=== PATIENT | female | born 1990 | race Caucasian/White ===

== ENCOUNTER → 2022-05-08 07:45 | Outpatient (CLI) | payer BC, SELFPAY ==
[2022-05-08 07:53] LABS: MANUAL DIFFERENTIAL MANUAL DIFFERENTIAL (MANUAL DIFF); Microscopic, Urine URINE MICROSCOPIC (MICROSCOPIC)
[2022-05-08 08:26] LABS: Appearance,Urine CLEAR (Clear); Bilirubin,Urine Negative (Negative); Blood, Urine Negative (Negative); Color,Urine YELLOW (Yellow); Glucose,Urine (UA) Negative (Negative); Ketones,Urine Negative (Negative); Leukocyte Esterase,Urine Negative (Negative); Nitrate,Urine Negative (Negative); PH,Urine 6.5 (5.0-8.5); Protein,Urine Negative (Negative); Urobilinogen,Urine 0.2 EU/dl (0.2)
[2022-05-08 08:29] LABS: Basophils # 0.1 K/mm3 (0-0.2); Basophils % 0.6 % (0.1-2.0); Eosinophils # 0.1 K/mm3 (0.0-0.4); Eosinophils % 0.6 % (0.1-12.0); Hematocrit 39.8 % (37.0-47.0); Lymphocytes # 2.3 K/mm3 (0.7-4.5); Lymphocytes % 29.4 % (10-50); Mean Corpuscular HGB Conc 32.6 g/dL (31.8-35.4); Mean Corpuscular Hemoglobin 29.4 pg (27.0-31.2); Mean Corpuscular Volume 90.4 fl (81-99); Mean Platelet Volume 8.7 fl (7.4-10.4); Monocytes # 0.4 K/mm3 (0.1-1.0); Monocytes % 4.5 % (1.7-9.3); Neutrophils # 5.1 K/mm3 (1.8-7.8); Neutrophils % 64.9 % (37.0-80.0); Platelet Count 299 K/mm3 (142-424); Red Blood Count 4.41 M/mm3 (4.20-5.40); Red Cell Distribution Width 13.7 % (11.5-17.5); White Blood Count 7.9 K/mm3 (4.8-10.8)
[2022-05-08 08:38] LABS: Bacteria,Urine Trace /lpf; WBC,Urine Occasional #/hpf (0-3)
[2022-05-08 09:03] LABS: Alanine Aminotransferase 21 U/L (12-78); Albumin Level 4.5 g/dl (3.5-5.0); Albumin/Globulin Ratio 1.8 (1.1-1.8); Alkaline Phosphatase 70 U/L (38-126); Anion Gap 13.7 mEq/L (5-15); Aspartate Amino Transferase 25 U/L (14-36); Bilirubin,Total 0.3 mg/dl (0.2-1.3); Blood Urea Nitrogen 11 mg/dl (7-17); Calcium 9.6 mg/dl (8.4-10.2); Carbon Dioxide 30 mmol/L (22.0-30.0); Chloride 100 mmol/L (98-107); Chol/HDL Ratio 3.5 (1-3.5); Cholesterol 189 mg/dl (140-200); Estimated Glomerular Filt Rate 98 ml/min (>60); GFR (African American) 118 ML/MIN (>60); Globulin 2.5 g/dL (1.3-3.2); Glucose 92 mg/dl (74-100); HDL Cholesterol 54 mg/dl (40-60); Potassium 4.7 mmoL/L (3.5-5.1); Sodium 139 mmol/L (136-145); Triglycerides 73 mg/dl (30-150); VLDL Cholesterol 15 mg/dL (0-40)
[2022-05-08 09:34] LABS: Thyroid Stimulating Hormone 1.91 uIU/mL (0.465-4.68)
[2022-05-08 10:18] LABS: Eosinophils % 1 % (0-3); Lymphocytes % 33 % (10-50); Monocytes % 5 % (2-9); Neutrophils % 61 % (42-76); Total Cells Counted 100
[2022-05-08 10:19] LABS: Platelet Estimate Normal; RBC Morphology Normal
== END ==
PROVIDERS: PCP Family Medicine; Visit Provider Family Medicine
DX: F32.A Depression, unspecified (principal); F41.9 Anxiety disorder, unspecified; F90.9 Attention-deficit hyperactivity disorder, unspecified type; I95.9 Hypotension, unspecified
CPT/HCPCS: 36415; 80053; 80061; 81001; 83036; 84443; 85007; 85014; 85018; 85048; 85049; 87086

== ENCOUNTER 2022-10-13 23:16 | Emergency (ER) | payer BC, SELFPAY ==
[2022-10-13 23:17] VITALS: BP 152/92; PULSE 66; RESP 16; TEMP 36.4; O2SAT 98; BMI 25.8
[2022-10-13 23:24] VITALS: BP 152/92; PULSE 62; RESP 20; O2SAT 100
[2022-10-13 23:31] VITALS: BMI 25.8
[2022-10-13 23:32] VITALS: BP 141/85; PULSE 68; RESP 18; O2SAT 100
--- NOTE | 2022-10-13 23:32 | CT_ITS ---
PROCEDURE INFORMATION: Exam: CT Abdomen And Pelvis With Contrast Exam date and time: 10/14/2022 12:14 AM Age: 32 years old Clinical indication: Abdominal pain; Additional info: Abd pain TECHNIQUE: Imaging protocol: Computed tomography of the abdomen and pelvis with contrast. Radiation optimization: All CT scans at this facility use at least one of these dose optimization techniques: automated exposure control; mA and/or kV adjustment per patient size (includes targeted exams where dose is matched to clinical indication); or iterative reconstruction. Contrast material: ISOVUE; Contrast volume: 75 ml; Contrast route: IV; REPORTING DATA: Count of CT and Cardiac NM exams in prior 12 months: This patient has received 0 known CTs and 0 known cardiac nuclear medicine studies in the 12 months prior to the current study. COMPARISON: No relevant prior studies available. FINDINGS: Lungs: Clear basilar lung parenchyma. Pleural spaces: No pleural fluid. Heart: Normal heart size. Liver: Mild periportal tracking is compatible with robust hydration status. Normal homogeneous liver parenchyma. Gallbladder and bile ducts: Cholelithiasis. No gallbladder wall thickening or pericholecystic fluid. No biliary tree dilation. Pancreas: Normal. No ductal dilation. Spleen: Normal. No splenomegaly. Adrenal glands: Normal configuration. Kidneys and ureters: No evidence of obstruction. No visible inflammation. Stomach and bowel: Unremarkable. No obstruction. No mural thickening. Appendix: Normal appendix is confirmed. Intraperitoneal space: No free air. No significant fluid collection. Vasculature: Normal caliber arterial structures. Lymph nodes: No enlarged lymph nodes. Urinary bladder: Unremarkable as visualized. Reproductive: IUD appears properly positioned. Crenulated enhancing focus in the right ovary is compatible with a recently ruptured follicle. Bones/joints: No fracture or destructive lesion. Soft tissues: Unremarkable. IMPRESSION: 1. Recently ruptured right ovarian follicle noted with trace pelvic free fluid. Otherwise, no acute abnormality to explain patient's abdomen pain. In particular, there is no evidence of urolithiasis or bowel obstruction, and a normal appendix is confirmed. 2. Cholelithiasis noted without CT features of acute cholecystitis. Ultrasound may be helpful if clinical scenario is unresolved.
[2022-10-13 23:42] LABS: Microscopic, Urine URINE MICROSCOPIC (MICROSCOPIC)
[2022-10-13 23:50] LABS: Appearance,Urine CLEAR (Clear); Bilirubin,Urine Negative (Negative); Blood, Urine Negative (Negative); Color,Urine YELLOW (Yellow); Glucose,Urine (UA) Negative (Negative); Ketones,Urine Negative (Negative); Leukocyte Esterase,Urine Negative (Negative); Nitrate,Urine Negative (Negative); PH,Urine 5.5 (5.0-8.5); Protein,Urine Negative (Negative); Urine Pregnancy, HCG Qual. Negative (Negative); Urobilinogen,Urine 0.2 EU/dl (0.2)
[2022-10-13 23:53] LABS: Alanine Aminotransferase 23 U/L (12-78); Albumin Level 4.5 g/dl (3.5-5.0); Albumin/Globulin Ratio 1.5 (1.1-1.8); Alkaline Phosphatase 72 U/L (38-126); Anion Gap 12.4 mEq/L (5-15); Aspartate Amino Transferase 30 U/L (14-36); Bilirubin,Total 0.3 mg/dl (0.2-1.3); Blood Urea Nitrogen 14 mg/dl (7-17); Calcium 8.9 mg/dl (8.4-10.2); Carbon Dioxide 27 mmol/L (22.0-30.0); Chloride 104 mmol/L (98-107); Creatinine Clearance Estimated 116 mL/min (50-200); Estimated Glomerular Filt Rate 83 ml/min (>60); GFR (African American) 101 ML/MIN (>60); Glucose 105 mg/dl (74-100); Lipase 91 U/L (23-300); Potassium 3.4 mmoL/L (3.5-5.1); Sodium 140 mmol/L (136-145); Total Protein,Serum 7.5 g/dl (6.3-8.2)
[2022-10-13 23:57] LABS: Basophils # 0.1 K/mm3 (0-0.2); Basophils % 0.5 % (0.1-2.0); Eosinophils # 0.1 K/mm3 (0.0-0.4); Eosinophils % 0.6 % (0.1-12.0); Hematocrit 37.6 % (37.0-47.0); Lymphocytes # 3.3 K/mm3 (0.7-4.5); Mean Corpuscular Hemoglobin 28.3 pg (27.0-31.2); Mean Corpuscular Volume 88.6 fl (81-99); Mean Platelet Volume 7.9 fl (7.4-10.4); Monocytes # 0.5 K/mm3 (0.1-1.0); Monocytes % 5.5 % (1.7-9.3); Neutrophils # 5.3 K/mm3 (1.8-7.8); Neutrophils % 57.5 % (37.0-80.0); Platelet Count 350 K/mm3 (142-424); Red Blood Count 4.24 M/mm3 (4.20-5.40); Red Cell Distribution Width 12.9 % (11.5-17.5); White Blood Count 9.2 K/mm3 (4.8-10.8)
[2022-10-13 23:59] LABS: WBC,Urine Occasional #/hpf (0-3)
[2022-10-14] LABS: Bacteria,Urine Trace /lpf
[2022-10-14] LABS: C-Reactive Protein 2.5 mg/L (0-4)
[2022-10-14 00:22] LABS: Procalcitonin < 0.030 ng/mL (0.0-2.0)
[2022-10-14 00:25] LABS: Erythrocyte Sedimentation Rate 17 mm/hr (0-20)
--- NOTE | 2022-10-14 00:56 | HMH.EDABDPAI ---
Discharge Plan Disposition Patient Disposition: Home, Self-Care Chief Complaint: Abdominal Pain Prescriptions Prescriptions: No Action bupropion HCl [Wellbutrin XL] 300 mg tablet extended release 24 hr 300 mg PO DAILY Qty: 90 1RF sertraline [Zoloft] 100 mg tablet 100 mg PO DAILY Qty: 90 1RF Mirena 20 mcg/24 hours (8 yrs) 52 mg intrauterine device intrauterine Referrals Follow up/Referrals: Jessica Sy DO [Primary Care Provider] - See instructions Kole Corbett MD [Staff Physician] - See instructions Clinical Impressions Clinical Impression: Abdominal pain, Cholelithiasis Instructions Patient Instructions: DI for Gallstones Discharge ED Provider: David (ED)Gavin Abdominal Pain HPI General Chief Complaint: Abdominal Pain Stated Complaint: Abdominal Pain Time Seen by Provider: 10/14/22 00:56 Mode of Arrival: Ambulatory Source of Information: Patient and Medical Record Limitations: No Limitations Description of Symptoms (Recalled from ER Triage Doc. by RN): Pt arrives to ED with c/o abd pain that started approx 1800 this evening, denies n/v/d, although stated she had a soft bowel movement earlier today. Pt reports hx of IBS and stated she gave herself an enema around 1930 tonight, which she has yet to have another bowel movement since. History of Present Illness HPI narrative: pt with upper abd pain today - hx of ibs complaint: abdominal pain Onset (ago): hour(s) Consistency: intermittent Location: RUQ Severity: moderate Associated symptoms: denies other symptoms Related Data Home Medications Medication Instructions Recorded Confirmed levonorgestrel 21 mcg/24 hours (8 intrauterine 04/15/22 07/17/22 yrs) 52 mg intrauterine device (Mirena) Previous Rx's Medication Instructions Recorded bupropion HCl 300 mg 24 hr tablet, 300 mg PO DAILY #90 tabs 07/17/22 extended release (Wellbutrin XL) sertraline 100 mg tablet (Zoloft) 100 mg PO DAILY #90 tabs 07/17/22 Allergies Allergy/AdvReac Type Severity Reaction Status Date / Time No Known Allergies Allergy Verified 07/17/22 11:40 [facility] Disclaimer: The information contained in this section may have been updated after the patient was seen, as this information can be updated by other users. Medical History , delivered Surgical History H/O colposcopy with cervical biopsy History of x2 [place] teeth extracted Family History Father Hypertension Grandmother Cancer, Onset Age: 70 Ovarian cancer Social History Smoking Status: Never smoker second hand exposure: No alcohol intake: current substance use type: denies use current occupational status: employed Travel in the last 8 weeks: None marital status: number of children: 2 ROS Obtained: Yes All systems reviewed & no additional complaints except as documented Physical Exam General General appearance: alert Head Head exam: normocephalic Eye Eye exam: Present PERRL and EOMI; Absent scleral icterus ENT ENT exam: Present mucous membranes moist Neck Neck exam: Absent trachea midline Respiratory Respiratory exam: Present normal lung sounds bilaterally Cardiovascular Cardiovascular exam: Present regular rate Abdominal Exam Abdominal exam: Present soft, tenderness and Guardado's sign; Absent guarding or rebound Abdominal tenderness: Present RLQ and moderate Extremities Exam Extremities exam: Present full ROM Neurological Exam Neurological exam: Present alert, oriented X3 and CN II-XII intact Skin Skin exam: Present intact Medical Decision Making Medical Records Medical records reviewed: Yes I reviewed the patient's medical records. Franklyn Inquiry Pt receiving controlled subs
[2022-10-14 01:03] VITALS: BP 123/71; PULSE 77; RESP 19; TEMP 36.8; O2SAT 98
== END 2022-10-14 01:12 | disposition home or self-care (01) ==
PROVIDERS: Emergency Provider Emergency Medicine; PCP Family Medicine
DX: K80.20 Calculus of gallbladder without cholecystitis without obstruction (principal)
CPT/HCPCS: 74177; 80053; 81001; 81025; 83690; 84145; 85025; 85651; 86140; 96360; 96361; 96374; 99284; 99285; J0131; Q9967

== ENCOUNTER 2023-11-11 06:56 | Emergency (ER) | payer BC, SELFPAY ==
[2023-11-11 07:02] VITALS: BP 137/82; PULSE 62; O2SAT 100
[2023-11-11 07:07] VITALS: BP 137/82; PULSE 55; RESP 20; TEMP 37.1; O2SAT 100; BMI 25.8
--- NOTE | 2023-11-11 07:18 | HMH.EDGENADL ---
Discharge Plan Disposition Patient Disposition: Home, Self-Care Prescriptions Prescriptions: New ondansetron 4 mg tablet,disintegrating 4 mg PO Q6H PRN (Reason: nausea and vomiting) Qty: 10 0RF No Action bupropion HCl [Wellbutrin XL] 300 mg tablet extended release 24 hr 300 mg PO DAILY Qty: 90 1RF Referrals Follow up/Referrals: Arian Casillas APRN [Primary Care Provider] - See instructions Trey Lee MD [Staff Physician] - See instructions Activity Restrictions/Add. Instructions Additional Instructions/Restrictions: Call your family doctor to establish care for this visit to the emergency department and schedule follow-up within 48 hours to ensure improvement. If you have any worsening of your condition or any other concerning signs or symptoms, return to the emergency department or your primary care doctor for further evaluation. Clinical Impressions Clinical Impression: Abdominal pain, Vomiting and diarrhea, Cholelithiases Instructions Patient Instructions: DI for Acute Abdominal Pain Discharge ED Provider: Juan Carlos Palmer General Adult HPI General Chief complaint: Abdominal Pain Stated complaint: abdomminal pain, vomiting Time Seen by Provider: 11/11/23 07:05 Mode of Arrival: Ambulatory Source of Information: Patient Limitations: No Limitations Description of Symptoms (Recalled from ER Triage Doc. by RN): pt presents to ed c/o generalized abd pain that she describes as sharp in nature with dull radiation to her ribs. pt states this pain started at approx 0200. pt states she took a warm bath that gave her relief for a short period of time and then the pain came back. pt states she has had a few episodes of emesis. pt states she has an IUD and has irregular cycles. History of Present Illness HPI narrative: Please note that above description of symptoms, in this electronic medical record under categorization of recalled from ER triage doctor by RN are reflective of an initial nursing assessment, however, is not reflective of my full history and physical exam that was personally taken and clarified. Consequentially, this preceding description of symptoms, which may include the patient's categorized chief complaint in the EMR, do not reflect my personal clinical impression, and the ultimate description of history of present illness and patient stated complaints should be deferred to this section of the note. Unless stated otherwise or congruent with this section of the note, additional signs, symptoms, or incongruence should be interpreted as inaccurate with my clinical impression. Related Data Previous Rx's Medication Instructions Recorded bupropion HCl 300 mg 24 hr tablet, 300 mg PO DAILY #90 tabs 07/17/22 extended release (Wellbutrin XL) ondansetron 4 mg disintegrating 4 mg PO Q6H PRN nausea and 11/11/23 tablet vomiting #10 tabs Allergies Allergy/AdvReac Type Severity Reaction Status Date / Time No Known Allergies Allergy Verified 07/17/22 11:40 [facility] Disclaimer: The information contained in this section may have been updated after the patient was seen, as this information can be updated by other users. Medical History , delivered Surgical History H/O colposcopy with cervical biopsy History of x2 [place] teeth extracted Family History Father Hypertension Grandmother Cancer, Onset Age: 70 Ovarian cancer Social History Smoking Status: Never smoker second hand exposure: No alcohol intake: current alcohol intake frequency: a few times a month substance use type: denies use current occupational status: employed Travel in the last 8 weeks: None marital status: number of children: 2 ROS Obtained: Yes All systems reviewed & no additional complaints except as documented Physical Exam General General appearance: alert and in no apparent distress Head Head exam: atraumatic and normocephalic Eye Eye exam: Present normal appearance, PERRL and EOMI ENT ENT exam: Present mucous membranes moist Neck Neck exam: Present normal inspection, full ROM and trachea midline Respiratory Respiratory exam: Absent respiratory distress, wheezes, stridor, accessory muscle use or prolonged expiratory phase Cardiovascular Cardiovascular exam: Present normal rhythm Abdominal Exam Abdominal exam: Present soft; Absent distention, tenderness, guarding, rebound, rigidity, Guardado's sign, Rovsing's sign or tenderness at McBurney's Point Extremities Exam Extremities exam: Absent edema Neurological Exam Neurological exam: Present alert, oriented X3, CN II-XII intact and normal gait; Absent motor sensory deficit Skin Skin exam: Present warm and dry; Absent diaphoresis or erythema Medical Decision Making Medical Records Medical records reviewed: Yes I reviewed the patient's medical records. Franklyn Inquiry Pt receiving controlled substance: No Frankyln was queried for this patient: No Vital Signs: 11/11/23 07:02 11/11/23 07:07 11/11/23 08:00 Temperature 98.7 F Temperature Source Oral Pulse Rate 62 61 Pulse Rate [Left Radial] 55 L Respiratory Rate 20 Blood Pressure 137/82 131/80 Blood Pressure [Right Arm] 137/82 Blood Pressure Mean [Right Arm] 100 02 Sat by Pulse Oximetry 100 100 98 Oxygen Delivery Method Room Air Lab Data Lab Results 11/11/23 06:59: Urine Color Yellow, Urine Appearance Clear, Urine pH 5.5, Ur Specific [place] 1.010, Urine Protein Negative, Urine Glucose (UA) Negative, Urine Ketones Negative, Urine Blood Negative, Urine Nitrate Negative, Urine Bilirubin Negative, Urine Urobilinogen 0.2, Ur Leukocyte Esterase Negative, Urine RBC None, Urine WBC None, Ur Squamous Epith Cells Occasional, Urine Bacteria Trace 11/11/23 07:06: WBC 9.5, RBC 4.39, Hgb 12.9, Hct 40.4, MCV 91.9, MCH 29.4, MCHC 31.9, RDW 14.0, Plt Count 243, MPV 8.3, Neut % (Auto) 70.8, Lymph % (Auto) 23.8, Prent[place] % (Auto) 4.3, Eos % (Auto) 0.5, Baso % (Auto) 0.6, Neut # (Auto) 6.7, Lymph # (Auto) 2.3, Prentiss # (Auto) 0.4, Eos # (Auto) 0.1, Baso # (Auto) 0.1, Sodium 142, Potassium 3.7, Chloride 106, Carbon Dioxide 28, Anion Gap 11.7, BUN 10, Creatinine 0.80, Estimated Creat Clear 115, Estimated GFR 83, Est GFR ( Amer) 100, Glucose 109 H, Lactate 0.9, Calcium 9.0, Total Bilirubin 0.2, AST 30, ALT 24, Alkaline Phosphatase 62, Total Protein 7.3, Albumin 4.4, Globulin 2.9, Albumin/Globulin Ratio 1.5, Lipase 73, HCG, Quant < 2 11/11/23 07:06 11/11/23 07:06 Orders (Tests/Meds): ED MEDICATIONS Generic Name Dose Route Start Last Admin Trade Name Toan PRN Reason Stop Dose Admin Sodium Chloride 8 ml 11/11/23 07:58 Sodium Chloride 0.9% 10ml Vial IV 12/11/23 07:57 NEEDED PRN dilute pepcid Discontinued Medications Generic Name Dose Route Start Last Admin Trade Name Toan PRN Reason Stop Dose Admin Acetaminophen 1,000 mg 11/11/23 07:12 11/11/23 07:26 Acetaminophen 1,000mg/100ml Vial IV 11/11/23 07:13 1,000 mg ONCE ONE Administration Famotidine 20 mg 11/11/23 07:58 11/11/23 08:08 Famotidine 20mg/2ml Vial IV 11/11/23 07:59 20 mg ONCE ONE Administration Lactated Ringer's 1,000 mls @ 999 mls/hr 11/11/23 07:12 11/11/23 07:26 Lactated Ringer's 1000 Ml Bag IV 11/11/23 08:12 999 mls/hr .Q1H1M ONE Administration Ketorolac Tromethamine 15 mg 11/11/23 07:58 11/11/23 08:08 Ketorolac 30mg/Ml Vial IV 11/11/23 07:59 15 mg ONCE ONE Administration Ondansetron HCl 4 mg 11/11/23 07:12 11/11/23 07:27 Ondansetron 4mg/2ml Vial IV 11/11/23 07:13 4 mg ONCE ONE Administration ORDERS Category Date Time Status POCUS Point of Care (ER Only) Stat Exams 11/11/23 07:13 Ordered Complete Blood Count Auto Diff Stat Lab 11/11/23 07:06 Completed Comprehensive Metabolic Panel Stat Lab 11/11/23 07:06 Completed HCG,Quantitative Stat Lab 11/11/23 07:06 Completed Lactic Acid Stat Lab 11/11/23 07:06 Completed Lipase Stat Lab 11/11/23 07:06 Completed Urinalysis and Microscopic Stat Lab 11/11/23 06:59 Completed Medical Decision Narrative: 33-year-old female history of section, anxiety depression, cholelithiasis presenting with abdominal pain. Patient states abdominal pain woke her up today, 11/10 at 2 AM. Vomiting, diarrhea, severe/cramping abdominal pain. Not in [address] in particular. No blood in her vomit or stool. Patient states that she has been breaking out in cold sweats with vomiting, but no fevers or chills that she noticed in the absence of pain and vomiting. Pain in the past from cholelithiasis which became symptomatic feels just like this pain. History was obtained via conversation with patient and . On arrival, patient hemodynamically stable, alert, oriented x4, appropriate, GCS 15, moving all extremities spontaneously, pupils equal and reactive to light. Full physical exam performed and significant for very well-appearing woman who is in no acute distress. Normotensive, nontachycardic, speaking in full sentences and appears comfortable. Abdomen is soft, nondistended, nontender in any quadrant, Guardado sign negative, no rebound tenderness. Differential includes PUD, gastritis, enteritis, gastroenteritis, pancreatitis, SBO, colitis, diverticulitis, nephrolithiasis, UTI, , cholecystitis, choledocholithiasis, appendicitis, hepatitis, torsion, aortic pathology, mesenteric ischemia among others Patient was given Zofran, fluids, [place] of for symptomatic management and correction of underlying abnormalities. Workup independently interpreted and significant for nonactionable CBC without white count. Chemistry nonactionable, LFTs normal, lipase negative, hCG negative, UA without concern for UTI. Abdominal ultrasound without acute cholecystitis. CT of the abdomen pelvis was considered, but deemed unnecessary. Labs unremarkable, right upper quadrant [id number] ultrasound also drove choice to not obtain CT imaging given cholelithiasis without secondary findings of cholecystitis and patient's similar pain with cholelithiasis in the past. On reevaluation, patient feeling better, no acute episodes here in the emergency department. After returned negative, patient given Pepcid and Toradol. Conversation was had with patient and family member regarding CT scan, after thorough discussion of risks and benefits as well as patient repeating understanding, ultimately CT scan was opted out of at this point. I feel this is appropriate. Patient appears to have capacity to make these decisions. Given patient presentation, workup, history, this most likely represents gastroenteritis versus symptomatic cholelithiasis. Because patient at baseline without signs or symptoms of clinical decompensation, deemed appropriate for discharge. Results were relayed to patient who voiced understanding and were agreeable to outpatient management and follow up. I discussed my clinical impression with patient and answered all questions. At this time, the evidence for any other entities in the differential is insufficient to warrant any further testing or ED observation. This was explained as well. Advisory was given that persistent or worsening symptoms require further evaluation. I confirmed the understanding of this discussion. Recommendations for outpatient cholecystectomy. Senior Software Manager disclaimer Much of this encounter note is an electronic veterinary dentist spoken language to printed text. Electronic veterinary dentist of the spoken language may permit errors. Although I have reviewed the note, some errors may still exist. Procedures Limited Ultrasound Indication:: Limited RUQ ultrasound Indication: Abdominal pain, vomiting, diarrhea Identified structures: -Gallbladder -Gallbladder wall -Common bile duct -Liver Findings: Sonographic Guardado sign: Absent Gallstones: Present x 4, 0.6 cm to 1.7 cm Sludge: Absent Pericholecystic fluid: Absent Maximal GB wall thickness (mm) (normal is </= 3mm): Normal Common bile duct width (mm) (normal is </= 6mm): Normal Gallbladder width (cm) (normal is < 4cm): Normal Gallbladder length (cm) (normal is < 10cm): Normal Impression: Cholelithiasis without secondary findings of cholecystitis Images were saved to permanent archive The study was technically adequate CPT 65926-82 This study was performed by me, and I personally interpreted all images/videos. Based on my clinical judgement, these images were adequate and did not necessitate further imaging. Critical Care Critical Care Time Critical Care Time: No
[2023-11-11 07:24] LABS: Microscopic, Urine URINE MICROSCOPIC (MICROSCOPIC)
[2023-11-11] MEDS: LACTATED RINGERS 1000ML 1,000 ML 999 ML IV (07:26)
[2023-11-11] MEDS: ACETAMINOPHEN 1,000MG/100ML VIAL 1000 MG IV (07:26)
[2023-11-11] MEDS: ONDANSETRON 4MG/2ML VIAL 4 MG IV (07:27)
[2023-11-11 07:36] LABS: Appearance,Urine CLEAR (Clear); Bilirubin,Urine Negative (Negative); Blood, Urine Negative (Negative); Color,Urine YELLOW (Yellow); Glucose,Urine (UA) Negative (Negative); Ketones,Urine Negative (Negative); Leukocyte Esterase,Urine Negative (Negative); Nitrate,Urine Negative (Negative); PH,Urine 5.5 (5.0-8.5); Protein,Urine Negative (Negative); Urobilinogen,Urine 0.2 EU/dl (0.2)
[2023-11-11 07:36] LABS: Basophils # 0.1 K/mm3 (0-0.2); Basophils % 0.6 % (0.1-2.0); Eosinophils # 0.1 K/mm3 (0.0-0.4); Eosinophils % 0.5 % (0.1-12.0); Hematocrit 40.4 % (37.0-47.0); Hemoglobin 12.9 g/dL (12.2-16.2); Lymphocytes # 2.3 K/mm3 (0.7-4.5); Lymphocytes % 23.8 % (10-50); Mean Corpuscular HGB Conc 31.9 g/dL (31.8-35.4); Mean Corpuscular Hemoglobin 29.4 pg (27.0-31.2); Mean Corpuscular Volume 91.9 fl (81-99); Mean Platelet Volume 8.3 fl (7.4-10.4); Monocytes # 0.4 K/mm3 (0.1-1.0); Monocytes % 4.3 % (1.7-9.3); Neutrophils # 6.7 K/mm3 (1.8-7.8); Neutrophils % 70.8 % (37.0-80.0); Platelet Count 243 K/mm3 (142-424); Red Blood Count 4.39 M/mm3 (4.20-5.40); White Blood Count 9.5 K/mm3 (4.8-10.8)
[2023-11-11 07:38] LABS: Alanine Aminotransferase 24 U/L (12-78); Albumin Level 4.4 g/dl (3.5-5.0); Albumin/Globulin Ratio 1.5 (1.1-1.8); Alkaline Phosphatase 62 U/L (38-126); Aspartate Amino Transferase 30 U/L (14-36); Bilirubin,Total 0.2 mg/dl (0.2-1.3); Blood Urea Nitrogen 10 mg/dl (7-17); Carbon Dioxide 28 mmol/L (22.0-30.0); Chloride 106 mmol/L (98-107); Creatinine Clearance Estimated 115 mL/min (50-200); Estimated Glomerular Filt Rate 83 ml/min (>60); GFR (African American) 100 ML/MIN (>60); Globulin 2.9 g/dL (1.3-3.2); Glucose 109 mg/dl (74-100); Lipase 73 U/L (23-300); Sodium 142 mmol/L (136-145); Total Protein,Serum 7.3 g/dl (6.3-8.2)
[2023-11-11 07:40] LABS: Lactic Acid 0.9 mmol/L (0.7-2.1)
[2023-11-11 07:44] LABS: Anion Gap 11.7 mEq/L (5-15); Potassium 3.7 mmoL/L (3.5-5.1)
[2023-11-11 07:49] LABS: Bacteria,Urine Trace /lpf; Squamous Epithelial Cell,Urine Occasional #/hpf (0-5)
[2023-11-11 07:56] LABS: HCG,Quantitative < 2 mIU/ml (0-5.42)
[2023-11-11 08:00] VITALS: BP 131/80; PULSE 61; O2SAT 98
[2023-11-11] MEDS: KETOROLAC 30MG/ML VIAL 15 MG IV (08:08)
[2023-11-11] MEDS: FAMOTIDINE 20MG/2ML VIAL 20 MG IV (08:08)
[2023-11-11 09:21] VITALS: BP 119/78; PULSE 50; RESP 16; TEMP 37.1; O2SAT 100
== END 2023-11-11 09:32 | disposition home or self-care (01) ==
PROVIDERS: Emergency Provider Emergency Medicine; PCP Nurse Practitioner Family
DX: R10.84 Generalized abdominal pain (principal); K80.20 Calculus of gallbladder without cholecystitis without obstruction; R11.2 Nausea with vomiting, unspecified; R19.7 Diarrhea, unspecified
CPT/HCPCS: 80053; 81001; 83605; 83690; 84702; 85025; 96361; 96374; 96375; 99284; J0131; J2405

== ENCOUNTER 2023-11-20 09:21 | Outpatient (CLI) | payer BC, SELFPAY ==
--- NOTE | 2023-11-20 09:21 | US_ITS ---
FINAL REPORT CLINICAL HISTORY: Right upper quad pain, gallstones seen on CT scan COMPARISON: CT abdomen and pelvis 10/14/2022 FINDINGS: GALLBLADDER ULTRASOUND Ultrasound images of the right upper quadrant were obtained specifically the gallbladder. Limited images of the liver parenchyma is normal in echogenicity. Multiple gallstones are noted filling the lumen of the gallbladder. The gallbladder is incompletely distended. Common duct is normal. IMPRESSION: Multiple gallstones in an incompletely distended gallbladder. Reviewed, Interpreted and Dictated by Brian Ceja MD Transcribed by Piedad Rodney Authenticated and [facility]
== END 2023-11-20 23:59 | disposition home or self-care (01) ==
LOC: RAD 09:21
PROVIDERS: PCP Nurse Practitioner Family; Visit Provider Surgery
DX: K80.20 Calculus of gallbladder without cholecystitis without obstruction (principal)
CPT/HCPCS: 76705

== ENCOUNTER 2024-10-22 11:06 | Outpatient (CLI) | payer BC, SELFPAY | END 2024-10-22 23:59 | LOC: LAB.DROPOF 10-25 11:06 | PROVIDERS: PCP Nurse Practitioner Family; Visit Provider Student in an Organized Health Care Education/Training Program | DX: R30.0 Dysuria (principal) | CPT/HCPCS: 87086 ==